=== PATIENT | male | born 1990 | race Hispanic/Latino ===

== ENCOUNTER 2019-02-07 12:43 | Emergency (ER) | payer OTHER ==
[2019-02-07] MEDS ORDERED: MORPHINE IV ONE (13:19)
[2019-02-07] MEDS ORDERED: NACL 0.9% 1000 ML 1,000 ML IV ONE (13:20)
[2019-02-07 13:26] LABS: Basophils # (Auto) 0.1 K/mm3 (0.0-0.1); Basophils % (Auto) 0.5 % (0.0-1.8); Eosinophils # (Auto) 0.1 K/mm3 (0.0-0.4); Eosinophils % (Auto) 0.7 % (0.0-4.3); Lymphocytes # (Auto) 1.2 K/mm3 (1.2-5.4); Lymphocytes % (Auto) 7.5 % (13.4-35.0); Mean Corpuscular HGB Conc 34 % (32-34); Mean Corpuscular Volume 93 fl (84-94); Monocytes % (Auto) 6.3 % (0.0-7.3); Platelet Count 271 K/mm3 (140-440); Red Blood Count 5.04 M/mm3 (3.65-5.03); Red Cell Distribution Width 13.8 % (13.2-15.2)
--- NOTE | 2019-02-07 13:33 | Emergency Department Report ---
ED Abdominal Pain HPI - General Chief Complaint: Abdominal Pain Stated Complaint: ABDOMINAL PAIN Time Seen by Provider: 02/07/19 13:04 Source: EMS Mode of arrival: Stretcher Limitations: No Limitations - History of Present Illness Initial Comments: 28-year-old male with no significant past medical surgical history presents to the Hospital complaining of sudden onset of lower abdominal pain since 8 AM. Pain is sharp, constant, without aggravating or alleviating factors. Pain radiates down to the testicle. Patient had nausea with 2 episodes of vomiting. Patient is currently 4/10 in intensity and improved after receiving Toradol and Zofran provided IV by EMS. Patient states she had diarrhea for the past 5 days of emesis resolved. He denies dysuria, hematuria, or fever. Severity scale (0 -10): 4 - Related Data Previous Rx's Medication Instructions Recorded Last Taken Type HYDROcodone/APAP 5-325 [[place] 1 each PO Q6HR PRN #15 tablet 02/07/19 Unknown Rx 5/325] Ibuprofen [Motrin] 800 mg PO Q8HR PRN #30 tablet 02/07/19 Unknown Rx Ondansetron [Zofran Odt] 4 mg PO Q8HR #20 tab.rapdis 02/07/19 Unknown Rx Allergies Allergy/AdvReac Type Severity Reaction Status Date / Time No Known Allergies Allergy Unverified 02/07/19 13:06 ED Review of Systems ROS: Stated complaint: ABDOMINAL PAIN Other details as noted in HPI Comment: All other systems reviewed and negative ED Past Medical Hx - Past Medical History Previous Medical History?: No - Surgical History Past Surgical History?: No - Social History Smoking Status: Current Every Day Smoker Substance Use Type: Marijuana - Medications Home Medications: Home Medications Medication Instructions Recorded Confirmed Last Taken Type HYDROcodone/APAP 5-325 [[place] 1 each PO Q6HR PRN #15 tablet 02/07/19 Unknown Rx 5/325] Ibuprofen [Motrin] 800 mg PO Q8HR PRN #30 tablet 02/07/19 Unknown Rx Ondansetron [Zofran Odt] 4 mg PO Q8HR #20 tab.rapdis 02/07/19 Unknown Rx ED Physical Exam - General Limitations: No Limitations - Other Other exam information: General: No limitations, patient is alert in no acute distress Head exam: Atraumatic, normocephalic Eyes exam: Normal appearance, nonicteric sclerae ENT: Moist mucous membrane Neck exam: Normal inspection, full range of motion, no meningismus nontender Respiratory exam: Clear to auscultation bilateral, no wheezes, rales, crackles Cardiovascular: Normal rate and rhythm, normal heart sounds Abdomen: Soft, nondistended, and nontender, with normal bowel sounds, no rebound, or guarding exam: Circumcised, no penile discharge or lesions, no testicular pain or epididymal tenderness, vertical testicular lie. Extremity: Full range of motion normal inspection no deformity Back: Normal Inspection, full range of motion, no tenderness Neurologic: Alert, oriented x3, cranial nerves intact, no motor or sensory deficit Psychiatric: normal affect, normal mood Skin: Warm, dry, intact ED Course Vital Signs 02/07/19 02/07/19 02/07/19 12:55 13:03 13:04 Temperature 98 F 98 F Pulse Rate 97 H 97 H Respiratory 16 Rate Blood Pressure 138/78 Blood Pressure 138/78 [Right] O2 Sat by Pulse 95 96 Oximetry 02/07/19 02/07/19 02/07/19 13:46 14:00 14:30 Temperature Pulse Rate Respiratory Rate Blood Pressure 138/78 121/69 130/81 Blood Pressure [Right] O2 Sat by Pulse 92 95 Oximetry 02/07/19 02/07/19 02/07/19 15:00 15:30 15:32 Temperature Pulse Rate Respiratory 16 Rate Blood Pressure 132/84 129/90 Blood Pressure [Right] O2 Sat by Pulse 96 Oximetry ED Medical Decision Making - Lab Data Result diagrams: 02/07/19 13:10 02/07/19 13:10 Lab Results 02/07/19 02/07/19 02/07/19 Range/Units 13:10 13:10 14:22 WBC 16.0 H (4.5-11.0) K/mm3 RBC 5.04 H (3.65-5.03) M/mm3 Hgb 16.0 H (11.8-15.2) gm/dl Hct 47.0 H (35.5-45.6) % MCV 93 (84-94) fl MCH 32 (28-32) pg MCHC 34 (32-34) % RDW 13.8 (13.2-15.2) % Plt Count 271 (140-440) K/mm3 Lymph % (Auto) 7.5 L (13.4-35.0) % [place] % (Auto) 6.3 (0.0-7.3) % Eos % (Auto) 0.7 (0.0-4.3) % Baso % (Auto) 0.5 (0.0-1.8) % Lymph # 1.2 (1.2-5.4) K/mm3 [place] # 1.0 H (0.0-0.8) K/mm3 Eos # 0.1 (0.0-0.4) K/mm3 Baso # 0.1 (0.0-0.1) K/mm3 Seg Neutrophils % 85.0 H (40.0-70.0) % Seg Neutrophils # 13.6 H (1.8-7.7) K/mm3 Sodium 139 (137-145) mmol/L Potassium 4.0 (3.6-5.0) mmol/L Chloride 102.5 (98-107) mmol/L Carbon Dioxide 28 (22-30) mmol/L Anion Gap 13 mmol/L BUN 13 (9-20) mg/dL Creatinine 0.8 (0.8-1.5) mg/dL Estimated GFR > 60 ml/min BUN/Creatinine Ratio 16 % Glucose 125 H (75-100) mg/dL Calcium 8.8 (8.4-10.2) mg/dL Total Bilirubin 0.70 (0.1-1.2) mg/dL AST 17 (5-40) units/L ALT 20 (7-56) units/L Alkaline Phosphatase 48 (35-129) units/L Total Protein 6.5 (6.3-8.2) g/dL Albumin 4.0 (3.9-5) g/dL Albumin/Globulin Ratio 1.6 % Urine Color Yellow (Yellow) Urine Turbidity Clear (Clear) Urine pH 7.0 (5.0-7.0) Ur Specific [place] 1.028 (1.003-1.030) Urine Protein 30 mg/dl (Negative) mg/dL Urine Glucose (UA) Neg (Negative) mg/dL Urine Ketones Neg (Negative) mg/dL Urine Blood Mod (Negative) Urine Nitrite Neg (Negative) Urine Bilirubin Neg (Negative) Urine Urobilinogen 2.0 (<2.0) mg/dL Ur Leukocyte Esterase Neg (Negative) Urine WBC (Auto) 1.0 (0.0-6.0) /HPF Urine RBC (Auto) 83.0 (0.0-6.0) /HPF U Epithel Cells (Auto) < 1.0 (0-13.0) /HPF Urine Mucus 3+ /HPF - Radiology Data Radiology results: report reviewed PROCEDURE: CT ABDOMEN PELVIS WO CON TECHNIQUE: Multiple contiguous axial images were obtained from the lung bases to the pubic symphysis without administration of IV contrast. Reformatted sagittal and coronal images were available for review. HISTORY: suprapubic and flank pain COMPARISONS: None. FINDINGS: Lower thorax: Normal. Liver and biliary tree: Normal noncontrast appearance. Gallbladder: No calcified gallstones. No pericholecystic fluid or gallbladder wall thickening. Spleen: Normal noncontrast appearance. Pancreas: Normal noncontrast appearance. Adrenal glands: Normal noncontrast appearance. Kidneys, ureters, and bladder: There is mild right hydronephrosis and hydroureter. There is a 2 mm calcified stone within the bladder, just distal to the right ureterove sicular junction. There is a simple appearing 4.1 cm cyst in the inferior pole of the left kidney. Bowel:No focal wall thickening. No evidence of obstruction. The appendix is not clearly identified, but there are no pericecal inflammatory changes. Peritoneum:No significant lymphadenopathy. No free air or free fluid. Pelvic organs:Normal. Vasculature: Normal noncontrast appearance. Abdominal wall: Normal. Bones: Normal. IMPRESSION: 2 mm calcified stone within the bladder, just distal to the right ureterovesicular junction with associated mild right hydronephrosis and hydroureter. - Medical Decision Making Pt feeling better with ED treatment. CT shows recently passed stone currently in the bladder. Outpatient follow-up with urology will be encouraged. - Differential Diagnosis torsion, appendicitis, diverticulitis, gastroenteritis, renal colic Critical Care Time: No Critical care attestation.: If time is entered above; I have spent that time in minutes in the direct care of this critically ill patient, excluding procedure time. ED Disposition Clinical Impression: Renal colic on right side Disposition: DC-01 TO HOME OR SELFCARE Is pt being admited?: No Does the pt Need Aspirin: No Condition: Stable Instructions: Renal Colic (ED), How to Strain Your Urine (ED) Additional Instructions: Take the medication as prescribed. Follow up with your doctor or the clinic/d octor provided. Return if symptoms worsen as indicated by your discharge instructions Prescriptions: Ibuprofen [Motrin] 800 mg PO Q8HR PRN #30 tablet PRN Reason: Pain, Moderate (4-6) HYDROcodone/APAP 5-325 [[place] 5/325] 1 each PO Q6HR PRN #15 tablet PRN Reason: Pain Ondansetron [Zofran Odt] 4 mg PO Q8HR #20 tab.rapdis Referrals: GISELLE LENZ MD [Primary Care Provider] - 3-5 Days CARIDAD MONTENEGRO MD [Staff Physician] - 3-5 Days Time of Disposition: 15:43
[2019-02-07 13:41] LABS: Alanine Aminotransferase 20 units/L (7-56); BUN/Creatinine Ratio 16; Blood Urea Nitrogen 13 mg/dL (9-20); Calcium 8.8 mg/dL (8.4-10.2); Hemolysis Index 36
[2019-02-07 15:08] LABS: Bilirubin,Urine NEG (Negative); Blood,Urine MOD (Negative); Color,Urine Yellow (Yellow); Mucus,Urine 3+ /HPF
--- NOTE | 2019-02-07 15:22 | Cat Scan Report ---
PROCEDURE: CT ABDOMEN PELVIS WO CON TECHNIQUE: Multiple contiguous axial images were obtained from the lung bases to the pubic symphysis without administration of IV contrast. Reformatted sagittal and coronal images were available for re view. HISTORY: suprapubic and flank pain COMPARISONS: None. FINDINGS: Lower thorax: Normal. Liver and biliary tree: Normal noncontrast appearance. Gallbladder: No calcified gallstones. No pericholecystic fluid or gallbladder wall thickening. Spleen: Normal noncontrast appearance. Pancreas: Normal noncontrast appearance. Adrenal glands: Normal noncontrast appearance. Kidneys, ureters, and bladder: There is mild right hydronephrosis and hydroureter. There is a 2 mm ca lcified stone within the bladder, just distal to the right ureterovesicular junction. There is a simp le appearing 4.1 cm cyst in the inferior pole of the left kidney. Bowel:No focal wall thickening. No evidence of obstruction. The appendix is not clearly identified, b ut there are no pericecal inflammatory changes. Peritoneum:No significant lymphadenopathy. No free air or free fluid. Pelvic organs:Normal. Vasculature: Normal noncontrast appearance. Abdominal wall: Normal. Bones: Normal. IMPRESSION: 2 mm calcified stone within the bladder, just distal to the right ureterovesicular junction with asso ciated mild right hydronephrosis and hydroureter. This document is electronically signed by Yolanda Nunes MD., February 07 2019 03:20:03 PM ET
[2019-02-07 15:32] VITALS: BP 129/90
== END 2019-02-07 15:58 | disposition home or self-care (01) ==
LOC: ED 12:43
DX: N23 Unspecified renal colic (principal); F17.200 Nicotine dependence, unspecified, uncomplicated
CPT/HCPCS: 36415; 74176; 80053; 81001; 85025; 96361; 96374; 99284; J2270; J7030

== ENCOUNTER 2019-04-15 23:55 | Emergency (ER) | payer SELFPAY ==
[2019-04-16 00:07] VITALS: BP 138/88
[2019-04-16] MEDS ORDERED: XYLOCAINE 1% MPF 5 mL INFILTRATI ONE (01:29)
--- NOTE | 2019-04-16 01:50 | Emergency Department Report ---
- General Chief complaint: Skin/Abscess/Foreign Body Stated complaint: BOIL Time Seen by Provider: 04/16/19 01:08 Source: patient Mode of arrival: Ambulatory Limitations: No Limitations - History of Present Illness Initial comments: Pt is a 28 yo male who presents to the ED with c/o a "boil" above the left knee and in the groin that began two days ago. He states there has been purulent drainage from both sites. the patient states he does shave the groin area with a razor. He denies any insect bite or trauma. He denies any fever. The patient denies any PMHx. he denies any allergies to medications. - Related Data Previous Rx's Medication Instructions Recorded Last Taken Type HYDROcodone/APAP 5-325 [[place] 1 each PO Q6HR PRN #15 tablet 02/07/19 Unknown Rx 5/325] Ibuprofen [Motrin] 800 mg PO Q8HR PRN #30 tablet 02/07/19 Unknown Rx Ondansetron [Zofran Odt] 4 mg PO Q8HR #20 tab.rapdis 02/07/19 Unknown Rx Allergies Allergy/AdvReac Type Severity Reaction Status Date / Time No Known Allergies Allergy Unverified 02/07/19 13:06 Abscess Boil HPI - HPI Chief Complaint: Skin/Abscess/Foreign Body Stated Complaint: BOIL Time Seen by Provider: 04/16/19 01:08 Home Medications: Previous Rx's Medication Instructions Recorded Last Taken Type HYDROcodone/APAP 5-325 [[place] 1 each PO Q6HR PRN #15 tablet 02/07/19 Unknown Rx 5/325] Ibuprofen [Motrin] 800 mg PO Q8HR PRN #30 tablet 02/07/19 Unknown Rx Ondansetron [Zofran Odt] 4 mg PO Q8HR #20 tab.rapdis 02/07/19 Unknown Rx Allergies/Adverse Reactions: Allergies Allergy/AdvReac Type Severity Reaction Status Date / Time No Known Allergies Allergy Unverified 02/07/19 13:06 ED Review of Systems ROS: Stated complaint: BOIL Other details as noted in HPI Comment: All other systems reviewed and negative ED Past Medical Hx - Past Medical History Previous Medical History?: No - Surgical History Past Surgical History?: Yes Additional Surgical History: cyst removal - Social History Smoking Status: Current Every Day Smoker Substance Use Type: Marijuana - Medications Home Medications: Home Medications Medication Instructions Recorded Confirmed Last Taken Type HYDROcodone/APAP 5-325 [[place] 1 each PO Q6HR PRN #15 tablet 02/07/19 Unknown Rx 5/325] Ibuprofen [Motrin] 800 mg PO Q8HR PRN #30 tablet 02/07/19 Unknown Rx Ondansetron [Zofran Odt] 4 mg PO Q8HR #20 tab.rapdis 02/07/19 Unknown Rx ED Physical Exam - General Limitations: No Limitations General appearance: alert, in no apparent distress - Head Head exam: Present: atraumatic, normocephalic - Eye Eye exam: Present: normal appearance - Respiratory Respiratory exam: Present: normal lung sounds bilaterally. Absent: respiratory distress, wheezes, rales, rhonchi, stridor, chest wall tenderness, accessory muscle use, decreased breath sounds, prolonged expiratory - Cardiovascular Cardiovascular Exam: Present: normal rhythm, tachycardia (mildly ), normal heart sounds. Absent: systolic murmur, diastolic murmur, rubs, gallop - Neurological Exam Neurological exam: Present: alert, oriented X3 - Psychiatric Psychiatric exam: Present: normal affect, normal mood - Skin Skin exam: Present: other (1.5 cm by 1 cm area of induration on the left thigh superior to the left knee, on manual expression there is purulent drainage, 3 cm by 3 cm area of induration and fluctuance to the left side of the pubis, no involvement of the scrotum or penis, on manual expression purulent drainage present, no surrounding cellulitis on either area, FROM of the left knee, correctional probation officer:KISHAN jensen) ED Course Vital Signs 04/16/19 00:00 Temperature 98.0 F Pulse Rate 124 H Respiratory 18 Rate Blood Pressure 138/88 O2 Sat by Pulse 100 Oximetry ED Medical Decision Making - Medical Decision Making pt has two abscesses present one on the left thigh and one on the left side of the groin left thigh was prepped with betadine and 2% lidocaine without epi was injected using a 26 gauge needle and 0.5 cc of lidocaine was injected, pt states he would no longer like to move forward with procedure and discussed he would need to sign out against medical advice. AMA with witness: the patient is alert and oriented x3. the patient exhibits decision-making capacity. the patient is free from distracting injury. the risks of leaving without a complete medical evaluation, and AGAINST MEDICAL ADVICE, were explained to the patient, and they included , disability, paralysis, permanent loss of quality of life, infection. The patient verbalized understand to these, and was able to articulate these risks in their own words, and this conversation was witnessed by KISHAN Jensen. Critical care attestation.: If time is entered above; I have spent that time in minutes in the direct care of this critically ill patient, excluding procedure time. ED Disposition Clinical Impression: Abscess Disposition: DC-07 LEFT AGAINST MED ADVICE Is pt being admited?: No Does the pt Need Aspirin: No Condition: Stable Instructions: Abscess (ED) Referrals: GISELLE LENZ MD [Primary Care Provider] - [facility] Forms: AMA Form Time of Disposition: 02:11 Print Language: KOREAN
== END 2019-04-16 01:47 | disposition left against medical advice (07) ==
LOC: ED 23:55
DX: L02.214 Cutaneous abscess of groin (principal); L02.416 Cutaneous abscess of left lower limb; F17.200 Nicotine dependence, unspecified, uncomplicated; F12.10 Cannabis abuse, uncomplicated